=== PATIENT | male | born 2000 | race Caucasian/White ===

== ENCOUNTER 2020-06-29 20:49 | Emergency (ER) | payer MEDICAID ==
[~2020-06-29] VITALS: Ht 185.4 cm; Wt 215.0 kg
[2020-06-29 20:56] VITALS: BP 124/53
[2020-06-29] MEDS ORDERED: LORazepam 1MG TABLET PO ONE (21:00)
--- NOTE | 2020-06-29 21:10 | NUR ---
Pt to ER after family called EMS for pt being unresponsive d/t whippets and ETOH. Pt to ER fully Awake, uncoopertive, telling staff to fuck off, ripping off VS equipment, throwing things around the room. Pt with stable VS, very uncoopertive. Security called to bedside. Physican at bedside. Will monitor.
--- NOTE | 2020-06-29 21:21 | NUR ---
Multiple attempts made to calm and treat patient. Pt able to dress himself. Pt speaking in full sentences. Mom and sister at bedside. Pt refusing to be treated or let staff touch him. Pt continues to cuss and be inappropriate. Sober family agrees to take pt home. Pt out of ER with security, stable on feet, and home with family. Physican aware and ok to leave AMA.
[2020-06-29] MEDS ORDERED: HALOPERIDOL 5 MG/ML IM ONE (21:30)
== END 2020-06-29 21:26 | disposition left against medical advice (07) ==
LOC: ED 21:20
DX: F10.129 Alcohol abuse with intoxication, unspecified (principal); F23 Brief psychotic disorder; F31.2 Bipolar disorder, current episode manic severe with psychotic features; F41.9 Anxiety disorder, unspecified; Y90.0 Blood alcohol level of less than 20 mg/100 ml
CPT/HCPCS: 99283